=== PATIENT | female | born 1985 | race Caucasian/White ===

== ENCOUNTER 2021-04-17 18:44 | Emergency (ER) | payer OTHER ==
[~2021-04-17] VITALS: Ht 152.4 cm; Wt 78.9 kg
[2021-04-18] MEDS ORDERED: TRANEXAMIC ACI650 MG PO (00:41)
== END 2021-04-18 00:58 | disposition home or self-care (01) ==
LOC: ED 18:44
DX: N92.0 Excessive and frequent menstruation with regular cycle (principal)
CPT/HCPCS: 36430; 80053; 84702; 85007; 85025; 86850; 86900; 86901; 86922; 96374; 96375; 99284-25; J2405; J7030; P9016

== ENCOUNTER 2021-04-18 19:14 | Emergency (ER) | payer OTHER ==
[~2021-04-18] VITALS: Ht 152.4 cm; Wt 79.4 kg
[~2021-04-18 19:14] MED LIST: TRANEXAMIC ACI650 MG PO
--- OUTSIDE RECORDS SUMMARY | 2021-04-18 19:26 | XMS ---
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 Gretel has no Care Guidelines for this patient. Gerry VISIT COUNT (12 MO.) 2 [facility] TOTAL 2 NOTE: Visits indicate total known visits. ED/[facility] (12 MO.) [facility] COMPLAINT: - BACK PAIN, BLOOD CLOTS 04/17/2021 18:44 [facility] [place] TYPE: Emergency COMPLAINT: - [facility] INPATIENT VISIT TRACKING (12 MO.) No inpatient visits to display in this time frame [email or web address]
== END 2021-04-18 22:47 | disposition home or self-care (01) ==
LOC: ED 19:14
DX: N92.0 Excessive and frequent menstruation with regular cycle (principal); M54.5 Low back pain; R11.0 Nausea; Z79.899 Other long term (current) drug therapy
CPT/HCPCS: 85025; 96374; 96375; 99284-25; J1885; J2405; J7030

== ENCOUNTER 2021-06-03 05:44 | Day surgery (SDC) | payer OTHER ==
[~2021-06-03] VITALS: Ht 152.4 cm; Wt 76.3 kg
[~2021-06-03 05:44] MED LIST changes: +FERROUS SULFAT325 M1 PO
--- NOTE | 2021-06-03 11:25 | NUR ---
06/03/21 1125 Sheets,Julita 1107 PT ARRIVED TO PACU WITH ORAL AIRWAY IN PLACE AND VSS. PT NONAROUSABLE TO STIMULI AND ON 6L VIA MASK. 1112 PT WAKES AND FOLLOW COMMANDS TO OPEN MOUTH AND ORAL AIRWAY REMOVED. RN REORIENTING PT TO PACU AND PT FALLS BACK TO SLEEP. SMALL AMOUNT OF SNORING NOTED. 1123 PT WAKES TO TACTILE STIMULI AND O2 REMOVED. PT REORIENTED TO PACU AND EASILY FALLS BACK TO SLEEP, SNORING NOTED. VSS. PT DENIES PAIN.
--- NOTE | 2021-06-03 11:50 | NUR ---
1150 PT ARRIVAL TO ROOM. 103 IN BED CARE ASSUMED FROM PINO GOMEZ RN. PATIENT IS RESTING WITH EYES CLOSED, EASILY ARROUSED, DENIES PAIN OR NEEDS, STATES FEELING SLEEPY. ABDOMINAL DRESSING DRY AND INTACT. 1152 VITAL SIGNS TAKEN. VITAL SIGNS WNL. PT IS ON ROOM AIR WITH SATS 98-100.
--- NOTE | 2021-06-03 12:50 | NUR ---
1250: PT DENIES NAUSEA AFTER RECIEVING NAUSEA MEDICATION. PT IS TOLERATING JELLO AND SMALL SIPS OF WATER.
--- NOTE | 2021-06-03 12:59 | NUR ---
DR HAYES AT THE BEDSIDE TALKING WITH THE PATIENT ABOUT THE PROCEDURE. NO FURTHER NEEDS OR REQUESTS AT THIS TIME.
--- NOTE | 2021-06-03 13:25 | NUR ---
PT RESTING IN BED WITH EYES CLOSED, RESPIRATIONS EVEN AND UNLABORED. OXYGEN SATURATIONS BETWEEN 98%-100%, REMAINS CONTINUOUS OXYGEN SATURATION MONITORING.
--- NOTE | 2021-06-03 14:02 | NUR ---
VITAL SIGNS COMPLETED. PT RESTING EASILY ARROUSED. DENIES NAUSEA OR NEED FOR PAIN MEDS. IS AT BEDSIDE, PT ABLE TO REACH 1000 AND ENCOURAGED TO REACH GOAL OF 2500.
--- NOTE | 2021-06-03 16:00 | NUR ---
PT LAYING IN BED. PT STATED GETTING WARM SO THIS RN TOOK TWO OF THE EXTRA BLANKETS OFF HER BED. VITAL SIGNS WNL. LR RUNNING AT 125 ML/HR. PT EDUCATED ON USE OF IS AND WHEN THE NEXT PAIN MEDICATON WILL BE AVAILABLE. NO FURTHER NEEDS AT THIS TIME.
--- NOTE | 2021-06-03 17:08 | NUR ---
PT RESTING IN BED. PAIN MEDICATION GIVEN. SEE EMAR. PT VITAL SIGNS WNL. DISCUSSED WITH PT ABOUT GETTING UP IN ABOUT AN HOUR TO THE CHAIR PT STATED OKAY WITH THIS. TEMP IN ROOM TURNED DOWN PER PATIENT REQUEST. NO FURTHER NEEDS AT THIS TIME.
--- NOTE | 2021-06-03 18:07 | NUR ---
PT STATES INCREASED PAIN AT REASSESSMENT. GIVEN THE PT TEN MORE MINUTES FOR THE FULL EFFECT OF THE MEDICATION TO KICK IN. IF PAIN DOES NOT IMPROVE IV MORPHINE WILL BE GIVEN. PT IS OK WITH THIS PLAN. NO FUTHER NEEDS AT THIS TIME.
--- NOTE | 2021-06-03 18:16 | NUR ---
181: ABDOMINAL DRESSING ASSESSED. DRAINAGE NOTED AND MARKED AT THIS TIME WILL CONTINUE TO MONITOR, PT SITTING UP IN BED TALKING WITH SIGNIFICANT OTHER, REQUESTING MORPHINE DUE TO PAIN 05/04. 1820: PT REPORTS FEELING A LITTLE BETTER WITH THE MORPHINE GIVEN, UP TO BEDSIDE CHAIR, HAS STEADY GAIT, DENIES DIZZINESS. PT SITTING UP IN BEDISDE CHAIR EATING A SNACK. REPORTS BACK PAIN IS MUCH BETTER IN CHAIR.183: PT SITTING UP IN CHAIR SMILING AND VISITING WITH SIGNIFICANT OTHER EATING DINNER, PT REPORTS 8/10 PAIN AND DECREASING. ICE PACKS TO ABD, PT DENIES FURTHER NEEDS. ABD DRESSING ASSESSED, NO FURTHER DRAINAGE NOTED.
--- NOTE | 2021-06-03 19:00 | NUR ---
PT SITTING UP IN THE CHAIR EATING DINNER. PT PAIN LEVEL HAS DECREASED FROM 8 TO A 6 WITH IT STILL GOING DOWN. PT HAS NO FURTHER NEEDS AT THIS TIME.
--- NOTE | 2021-06-03 20:06 | NUR ---
PT SITTING UP IN CHAIR EATING DINNER AND TOLERATING IT WELL. AT BEDSIDE. RATES PAIN 6 OUT OF 10 AND STATES THAT PAIN MEDS ARE WORKING.
--- NOTE | 2021-06-03 21:15 | NUR ---
PT CONTINUES TO BE UP IN CHAIR, TOLERATES WELL. NEW LR IV HUNG AND CONTINUES TO INFUSE AT 125ML/HR IN LEFT HAND IV SITE. IV SITE INTACT.
--- NOTE | 2021-06-03 22:13 | NUR ---
PT C/O NAUSEA AND WOULD LIKE TO GET BACK TO BED. PT BACK TO BED AND ZOFRAN 4MG IVP GIVEN. SCD'S APPLIED AND PT USED INSENTIVE SPIROMETER.
--- NOTE | 2021-06-03 22:30 | NUR ---
PT NAUSEA BETTER AND REQUESTING PAIN MEDS. MEDICATED WITH 2 PERCOCET PO. PT WILL TRY TO GET SOME REST.
--- NOTE | 2021-06-03 22:58 | NUR ---
PT IN BED AND WILL TRY TO GET SOME SLEEP. PTS DAUGHTER HERE TO STAY WITH HER TONIGHT. NO COMPLAINTS. STATES THAT NAUSEA IS GONE AND THAT ZOFRAN WAS HELPFUL.
--- NOTE | 2021-06-04 01:01 | NUR ---
PT SLEEPING RESTFULLY. NO NEEDS VOICED. RESP EVEN AND UNLABORED.
--- NOTE | 2021-06-04 03:09 | NUR ---
PT SLEEPING WELL. NO NEEDS VOICED. RESP EVEN AND UNLABORED.
--- NOTE | 2021-06-04 05:13 | NUR ---
PT AWAKENED FOR VS AND MEDICATED WITH 2 PERCOCET PO. PT TOOK SIPS OF APPLE JUICE. NEW IV LR HUNG AND INFUSING AT 125/HR. FRESH ICE PACK PLACED ON TOP OF INCISION FOR COMFORT. SCD'S ON.
--- NOTE | 2021-06-04 06:00 | NUR ---
LAB HERE TO DRAW AM LABS. PT MEDICATED WITH 800MG MOTRIN AND MEDICATED WITH SCHEDULED HEPARIN 5000UNITS GIVEN IN LEFT LOWER ABD. PT STATES THAT PERCOCET IS STARTING TO WORK.
--- NOTE | 2021-06-04 10:06 | NUR ---
PT WAS RESTING IN BED. MORNING ASSESSMENT COMPLETED. DC'D PT ABDI, INTACT, WNL. PT WAS ABLE TO VOID A SCANT AMOUNT AFTER THE ABDI WAS REMOVED. IV IN THE RIGHT HAND WAS DC'D. INTACT, OOSING BLOOD, DRESSING CHANGED AND PRESSURE APPLIED. IV IN THE LEFT HAND WAS SALINE LOCKED AND LR WAS STOPPED. PT ENCOURAGED TO DRINK PO FLUIDS. PT WAS ABLE TO GET UP AND WALK TO THE BATHROOM WELL WALK AROUND THE ROOM BEFORE SITTING IN THE CHAIR. PT HAS HER DAUGHTER IN THE ROOM WITH HER. THE INCISION SITE HAD OLD DRAINAGE NOTED. ICE PACK TO THE INCISION SITE. PT WAS EDUCATED AGAIN ON THE USE OF THE IS AND THE IMPORTANCE OF WALKING AROUND MUCH POSSIBLE. PT AND DAUGHTER ORDERED BREAKFAST. NO FURTHER NEEDS AT THIS TIME.
--- NOTE | 2021-06-04 11:09 | NUR ---
PT SITTING UP IN CHAIR TALKING ON THE PHONE. PT STATES 5/10 PAIN AFTER A REASSESSMENT FROM PAIN MEDICATION. DISCUSSED WITH THE PT ABOUT WHEN SHE CAN HAVE THE NEXT DOSE AND SHE IS OK WITH THIS PLAN. SHE IS STILL EATING BREAKFAST AND DOING THE IS DURING COMMERCIALS. SHE DOES HAVE PLANS FOR LATER TODAY TO TAKE A SHOWER AND WALK AROUND. NO FURTHER NEEDS AT THIS TIME.
--- NOTE | 2021-06-04 14:07 | NUR ---
PT FINISHED EATING BREAKFAST IN CHAIR AND GOT UP TO TAKE A SHOWER. PT DID HAVE OOZING BLOOD OUT OF THE LAPROSCOPING INCISION WHICH WAS REINFORCED. PT WAS ABLE TO SHOWER AND BRUSH HER OWN TEETH AND HAIR. PT WALKED TWO LAPS AROUND THE UNIT SLOWLY BUT WITH A STEADY GAIT. BED SHEETS WERE CHANGED. PT BACK IN BED RESTING. IV SITE WAS FLUSHED WITH 10 ML NS. PT AFTERNOON MEDS WERE GIVEN. SEE EMAR. PT WATER FILLED AND COMFORTABLE IN BED. NO FURTHER NEEDS AT THIS TIME.
--- NOTE | 2021-06-04 15:06 | NUR ---
1445: PT NAPPING IN BED. CALL LIGHT WITHIN REACH. NO FURTHER NEEDS AT THIS TIME.
--- NOTE | 2021-06-04 15:15 | NUR ---
PT AWAKE AND TALKING ON THE PHONE IN BED. ASSESSED PT NEED FOR THE PRN PAIN MEDICATION. PT PAIN WAS AT A 5/10 AND WANTED TO WAIT UNTIL 1400 TO RECEIVE PAIN MEDICATION. CALL LIGHT WITHIN REACH. NO FURTHER NEEDS AT THIS TIME.
--- NOTE | 2021-06-04 15:45 | NUR ---
PT RESTING IN BED WATCHING TV. PT GIVEN PAIN MEDICATIOIN GIVEN SEE EMAR. VITAL SIGNS TAKEN, WNL. PT UP TO THE BATHROOM. I&O'S TAKEN. PT EDUCATED ON DRINKING MORE WATER AND USING THE IS. PT ABDOMEN ASSESSED, SCANT AMOUNT OF BLOOD DRAINAGE ON THE NEW BANDAGE, OVERALL LOOKED GOOD. SCD'S BACK ON PT LEGS. PT PLANS ON GETTING UP TO THE CHAIR TO EAT DINNER WHEN THE TIME COMES. CALL LIGHT IN REACH NO FURTHER NEEDS AT THIS TIME.
--- NOTE | 2021-06-04 17:00 | NUR ---
PT RESTING IN BED. DINNER ARRIVED AND ASSISTED PT UP TO THE CHAIR. PAIN LEVEL IS CONSISTANT AT A 5/10. PT HAS PLANS TO WALK AROUND THE UNIT AFTER DINNER AND BEFORE GETTING BACK IN BED. CALL LIGHT IN REACH AND NO FURTHER NEEDS AT THIS TIME.
--- NOTE | 2021-06-04 18:00 | NUR ---
PT BACK TO THE CHAIR AFTER DOING 5 LAPS AROUND THE UNIT. PT IN THE ROOM WITH HER. PT WAS EDUCATED FURTHER ABOUT THE IMPORTANCE OF DRINKING WATER, SHE STATED SHE DOESN'T ALWAYS LIKE THE TASTE OF WATER SO SHE WAS GIVEN WATER WITH SOME JUICE ADDED TO IT FOR FLAVOR. CALL LIGHT IS IN REACH AND NO FURTHER NEEDS AT THIS TIME.
--- NOTE | 2021-06-04 18:00 | NUR ---
PT WAS FINISHING DINNER IN THE CHAIR. PT WAS ABLE TO GET UP AND GO TO THE BATHROOM. PT IS NOW UP WALKING AROUND THE UNIT WITH HER WHO JUST ARRIVED. PT GAIT IS STEADY.
--- NOTE | 2021-06-05 07:20 | NUR ---
PT SLEEPING. DAUGHTER IN ROOM WITH PT. NO FALL HAZARDS ON THE FLOOR. PT CALL LIGHT IN REACH.
--- NOTE | 2021-06-05 08:00 | NUR ---
PT AWAKE RESTING IN BED. MORNING ASSESSMENT COMPLETED. BREATH SOUNDS CLEAR. HEART TONES WNL. NO NUMBNESS OR TINGLING IN EXTREMITIES. NO DIZZINESS OR NAUSEA NOTED. VITAL SIGNS WNL. ABDOMINAL INCISION WNL. OLD DRAINAGE NOTED ON THE ABD. PT UP TO THE BATHROOM TO VOID AND MORNING ORAL CARE. PT STEADY WHEN AMBULATING. PT STATES 7/10 PAIN IN THE INCISION AREA STATES TOLERABLE. IV SITE WNL NO DRAINAGE OR PAIN, SALINE LOCKED. PT EDUCATED ON ORAL FLUIDS. PLAN FOR THE DAY DISCUSSED WITH PT, PT WILL BE UP TO THE CHAIR FOR BREAKFAST THEN UP FOR A WALK. PT OK WITH THIS PLAN. PT IN BED RESTING UNTIL BREAKDFAST ARRIVES. DAUGHTER IN ROOM. CALL LIGHT IN REACH, NO FURTHER NEEDS AT THIS TIME.
--- NOTE | 2021-06-05 08:50 | NUR ---
BREAKFAST ARRIVED. PT UP TO THE CHAIR TO EAT. PT STATES 7/10 PAIN. PT HAS PAIN MEDICATION DUE BUT STATES THIS IS A TOLERABLE LEVEL AND WANTS TO HOLD OFF UNTIL AFTER BREAKFAST. DISCUSSED WITH THE PT THAT SHE SHOULDN'T WAIT TOO LONG BECAUSE IT COULD MAKE THE PAIN WORSE AND SHE SAID AFTER BREAKFAST SHE WILL TAKE PAIN MEDS. AFTER BREAKFAST SHE WOULD ALSO LIKE TO WALK THE UNIT. PT DAUGHTER IN THE ROOM WITH HER. CALL LIGHT IN REACH, NO FURTHER NEEDS AT THIS TIME.
--- NOTE | 2021-06-05 09:30 | NUR ---
CHECKED IN WITH PT. STILL EATING BREAKFAST SLOWLY. DISCUSSED IF SHE WOULD LIKE PAIN MEDICATION YET AND PT WOULD LIKE TO WAIT A LITTLE LONGER. PT DAUGHTER STILL IN ROOM WITH HER. CALL LIGHT IN REACH NO FURTHER NEEDS AT THIS TIME.
--- NOTE | 2021-06-05 10:06 | NUR ---
PT SITTING IN CHAIR FINISHING BREAKFAST. PT STATED PAIN 7/10 IN THE ABD AREA. PAIN MEDICATION GIVEN. PT EDUCATED ON CONTINUING PO FLUIDS MUCH POSSIBLE. CALL LIGHT IN REACH NO FUTHER NEEDS AT THIS TIME.
--- NOTE | 2021-06-05 11:39 | NUR ---
PT FINISHED BREAKFAST AND GOT UP TO USE THE RESTROOM. PT IS NOW UP WALKING AROUND THE UNIT WITH HER DAUGHTER. PT HAS NON SLIP SOCKS ON WITH A STEADY GAIT WHILE AMBULATING. PT STATES PAIN IS 7/10 IN THE ABD AREA BUT STILL TOLERABLE.
[2021-06-05] MEDS ORDERED: FEROSUL325 MG PO (13:47)
--- NOTE | 2021-06-05 13:56 | NUR ---
MED REC COMPLETE
[2021-06-05] MEDS ORDERED: PERCOCET 5-3251 EACH PO (13:57)
[2021-06-05] MEDS ORDERED: IBUPROFEN800 MG PO (13:58)
--- NOTE | 2021-06-05 14:30 | NUR ---
DISCHARGE ORDERS IN PLACE FOR PT. EDUCATION ON MEDICATIONS PROVIDED BY CANDICE FROM PHARMACY. PT EDUCATION ABOUT MEDICATIONS, ABDOMINAL HYSTERECTOMY CARE SUCH WHEN TO CALL THE DOCTOR, SIGNS OF INFECTION, AND CARE OF THE INCISION. PT HAS A FOLLOW UP APPOINTMENT WITH DR JOHNSON May AT 1330. ALL QUESTIONS PT HAD WERE ANSWERED, PT AND DAUGHTER DENIES FURTHER QUESTIONS. IV ON THE LEFT HAND WAS REMOVED, TIP INTACT. REMOVAL WNL, TOLERATED WELL. PT UP IN ROOM GETTING DRESSED, DENIES DIZZINESS OR NEEDS
--- NOTE | 2021-06-05 14:42 | NUR ---
PT DISCHARGED VIA WHEELCHAIR. PT DENIES QUESTIONS OR CONCERNS BEFORE LEAVING. PT WHEELED TO THE FRONT OF THE HOSPITAL. PT PICKED HER UP TO DRIVE HER HOME. PT DAUGHTER WAS ALSO HERE TO HELP. PT WAS ASSISTED INTO THE CAR. PT HAD A STEADY GAIT WITH NO DIZZINESS REPORTED. ALL BELONGINGS WENT WITH THE PT. NO FURTHER QUESTIONS OR CONCERNS FROM THE PT AND FAMILY. PT HAS LOTS OF SUPPORT AT HOME FROM HER AND CHILDREN.
--- NOTE | 2021-06-10 11:43 | OR ---
[facility] [address] [place], [place] [address] Signed DATE OF OPERATION: 06/03/2021 SURGEON: Feliz Sauceda MD The patient of Dr. Sauceda. PREOPERATIVE DIAGNOSIS: Abnormal uterine bleeding, uterine fibroids. POSTOPERATIVE DIAGNOSES: Abnormal uterine bleeding, uterine fibroids plus anterior cul-de-sac adhesions. PROCEDURES: Diagnostic laparoscopy, total abdominal hysterectomy with bilateral salpingectomy and lysis of adhesions and cystoscopy. ED TECH: Dr. Courtney ANESTHESIA: General. ESTIMATED BLOOD LOSS: 400 mL. COMPLICATIONS: None. DRAINS: Adames to bladder. FINDINGS: Small irregular lobed cervix with small introitus. Uterus was enlarged approximately 16 week size, symmetrically round and soft. The anterior cul-de-sac was elevated. The anterior cul-de-sac bladder flap was elevated up the anterior uterus approximately half way to the round ligaments with adhesions extending laterally up to the round ligaments on both sides. The posterior cul-de-sac was free of any adhesions. Both tubes were slightly edematous and shortened, but no other abnormalities or adhesions seen. Both ovaries were normal in size, but closely adherent to the uterus. No other adhesions of the ovaries seen. There were some right upper quadrant adhesions from the anterior Electronically Signed By: FELIZ SAUCEDA MD 06/10/21 1143 PATIENT NAME: LINN SALAZAR OPERATIVE REPORT DATE OF : 81 REPORT #: [id number] PHYSICIAN: FELIZ SAUCEDA MD PCP: NO PRIMARY CARE PHYSICIAN REPORT IS CONFIDENTIAL AND NOT TO BE RELEASED WITHOUT AUTHORIZATION [facility] [address] [place], [place] [address] Signed abdominal wall to the bowel and was filmy adhesions around the liver. DESCRIPTION OF PROCEDURE: The patient was brought to the operating room, placed in supine position. After adequate general anesthesia was obtained, was placed in a dorsal lithotomy position, and prepped and draped in usual sterile fashion. A Adames catheter was placed in the bladder and a weighted speculum placed in the vagina. The cervix was identified, grasped with the Allis clamp. The VCare uterine manipulator was carefully inserted through the endocervical canal into the fundus of the uterus and the balloon filled with water. The rest of the instruments were removed and the cervical cap slid up. The uterine manipulator placed over around the cervix and then the vaginal cup slid up against the cervical cap and tightened in place. Attention was then drawn to the abdomen. A small infraumbilical skin incision was made with a scalpel after injecting the area with 0.25% Marcaine with epinephrine. Subcutaneous tissue was dissected with Metzenbaum scissors. The fascia identified, grasped with hemostats elevated nicked with Metzenbaum scissors and extended in transverse fashion using Metzenbaum scissors. Retention stitches of 0 Vicryl suture placed above and below the incision. Finger dissection was used to bluntly separate the muscle and opened the peritoneum. An S retractor was inserted into the incision and the Andressa cannula and sleeve entered the abdomen under direct visualization. The sleeve balloon was filled with air. The outer sleeve slid down and tightened in place and the two retention stitches attached to the outer sleeve. The trocar was removed. The laparoscope with video attachment entered the abdomen under direct visualization. Carbon dioxide was used as distending medium. With the laparoscope in place, the uterus noted to be quite round smooth, very difficult to see around the uterus. Attempt was made to elevate and lower the bladder. The uterus could not be elevated because the anterior abdominal wall and could not be lowered because of the adhesions holding the uterus to the anterior abdominal wall. It was difficult to see either upper pedicle and so it was decided at this point not to attempt a laparoscopic procedure and proceed with abdominal approach, so all instruments were removed. A midline vertical skin incision was made between the previous skin incision down to suprapubic area using a scalpel. Subcutaneous tissue was dissected with the scalpel and Bovie. The fascia was nicked with scalpel and a Aviva clamp placed under the fascia to raise the fascia and open the fascia with the scalpel along the midline. The previous opening in the infraumbilical area was used, placed a finger through and Flores scissors used to cut the midline scarred tissue combining the peritoneum abdominal musculature. This was a fairly thick and scarred in the midline and this was taken down until palpating the elevated bladder flap. At this point care was taken to carefully separate just muscle, the abdominal musculature and attempt was made to identify the bladder flap adhesions separate from the bladder. This was rather difficult and Metzenbaum scissors Electronically Signed By: FELIZ SAUCEDA MD 06/10/21 1143 PATIENT NAME: LINN SALAZAR OPERATIVE REPORT DATE OF : 81 REPORT #: [id number] PHYSICIAN: FELIZ SAUCEDA MD PCP: NO PRIMARY CARE PHYSICIAN REPORT IS CONFIDENTIAL AND NOT TO BE RELEASED WITHOUT AUTHORIZATION [address] [address] Signed were used to undermine the peritoneum that was elevated along in the midline and this was cut transversely. The tissue gently pushed down taking care to stay against the uterus and cervix to avoid entering the bladder, with this partially taken down there was still not enough room to elevate the uterus, so the abdominal wall incision was extended around the umbilicus and using a scalpel to gain extra length. At this point, the uterus could be partially brought out of the opening and palpated behind and around the uterus and the anterior cul-de-sac adhesions were again carefully bluntly taken down, staying against the cervix and uterus. At this point, finally plane was found against the lower segment of the uterus and cervix and so the tissue could be taken down so that the Conner self-retaining retractor could be inserted, with this in place and tightened the upper pedicles could then be taken down. Again, the ovaries were again noted to be very close and adherent to the uterus. Two curved Celeste clamps were placed against the uterus between the uterus and the left ovary and this pedicle was cut with scissors and was stick-tied with 0-Vicryl suture. The second pedicle was taken to free up against the uterus. Again, two curved Celeste clamps were used to clamp the pedicle, cut and then the pedicle stick-tied. This did seem to incorporate the uteroovarian ligament and fallopian tube. The round ligament was still below this and pulled into the adhesion, but the round ligament could be from the bladder, so two curved Celeste clamps were used to clamp the round ligament, which was then cut and the pedicle stick-tied with 0-Vicryl suture. Same procedure was carried out on the right side again. The ovary was very close to the uterus. The two curved Celeste clamps were clamped against the uterus and the pedicle cut between in the pedicles, stick-tied with 0-Vicryl suture and two additional curved Celeste pedicles were doubly clamped, cut, and tied to reach the round ligament on the right side. At this time the uterus could be elevated. Once the uterus was free of the upper pedicles. The uterus could be elevated further and palpated underneath and so the broad ligament pedicles could be taken down again clamping with a straight Celeste clamp against the uterus and then second clamped just lateral to this cutting between the two clamps and stick tying with 0-Vicryl suture. Upon reaching the level of the uterine, the uterine arteries straight Celeste clamps were clamped against the uterus. The pedicles cut and each side stick-tied with 0-Vicryl suture. Blunt dissection was used to help push the paracervical tissue down the bladder did seem to be above this area at this point, and so the dissection could continue with straight Celeste clamps, clamped on either side against the side of the cervix, cutting the pedicles with curved scissors and stick tying with 0-Vicryl suture. This was taken down till reaching the level of the external os. At this point, two curved Celeste clamps were placed against the cervix just lateral and clamping just below the cervix. Justin scissors were then used to cut the cervix free from the vagina and the uterus and attached cervix was removed from the operating field. The two angle stitches were Tanya stick-tied to incorporate the corners and the remaining opening in the vaginal with 0-Vicryl suture and the remaining opening in the vaginal cuff closed with two [id number] stitches of 0 Vicryl suture. At this point, the fallopian tubes were clamped with Aviva clamps and cut free of the Electronically Signed By: FELIZ SAUCEDA MD 06/10/21 1143 PATIENT NAME: LINN SALAZAR OPERATIVE REPORT DATE OF : 81 REPORT #: [id number] PHYSICIAN: FELIZ SAUCEDA MD PCP: NO PRIMARY CARE PHYSICIAN REPORT IS CONFIDENTIAL AND NOT TO BE RELEASED WITHOUT AUTHORIZATION [facility] [address] [place], [place] [address] Signed ovary and the pedicle stick-tied with 0-Vicryl suture. The entire pelvis was then irrigated, suctioned and examined. There were several oozing spots. These were carefully identified as superficial wound were cauterized with the Bovie. Deeper one on the left side was grasped with hemostats and then cross clamped just below this with a right angle clamp and a free tie of 3-0 Vicryl suture used to control the small bleeder. The peritoneal edge on the left pelvic sidewall was noted to be well above the ureter and so a running stitch of 3-0 Vicryl suture was used to control this bleeding. The pressure was then held and then again the entire pelvis irrigated, suctioned, examined and noted to have good hemostasis except for slight raw areas with the minimal bleeding. The raw areas were then sprayed with Tisseel to help with hemostasis. The Conner retractor was removed. The lap pads were removed and the upper portion of the adhesions and abdominal musculature were carefully examined any bleeding spots cauterized with the Bovie staying on any abdominal musculature and staying away from the bladder with the Bovie. Additional Tisseel was sprayed over this raw area from all the adhesions to the peritoneum. Good hemostasis was obtained. The peritoneum was then closed using running stitch of 2-0 Vicryl suture. The fascia closed using two running stitches of 0-PDS, one starting from the bottom corner, one starting from the top corner and meeting in the corner and meeting in the middle. The subcutaneous tissue was irrigated, suctioned, and examined, and any bleeding spots cauterized with the Bovie. Subcutaneous tissue was closed using interrupted stitches of 3-0 Vicryl suture and the skin reapproximated using 4-0 repeated in the subcuticular stitch. Cystoscopy was then done so a Adames catheter was removed. The cystoscope with 70 degree lens was carefully placed in the urethral opening and entered the bladder under direct visualization. Sterile water was used as distending medium. The entire bladder was examined. The dome posterior and both sides carefully examined, noted to have no defects puckering sutures or any holes. Both ureteral orifices were identified and showed correct position and showed good jets of urine coming from each. At this point, the bladder was drained. The cystoscope removed and the Adames catheter placed back in the bladder. The patient tolerated the procedure well, went to recovery room in good condition. The sponge, needle, and instrument count were correct at the end of the procedure. Feliz Sauceda MD MJB/MODL /[id number] Electronically Signed By: FELIZ SAUCEDA MD 06/10/21 1143 PATIENT NAME: LINN SALAZAR OPERATIVE REPORT DATE OF : 81 REPORT #: [id number] PHYSICIAN: FELIZ SAUCEDA MD PCP: NO PRIMARY CARE PHYSICIAN REPORT IS CONFIDENTIAL AND NOT TO BE RELEASED WITHOUT AUTHORIZATION [facility] [address] [place] [id number] Signed Copies: ~ Electronically Signed By: FELIZ SAUCEDA MD 06/10/21 1143 PATIENT NAME: LINN SALAZAR OPERATIVE REPORT DATE OF : 81 REPORT #: [id number] PHYSICIAN: FELIZ SAUCEDA MD PCP: NO PRIMARY CARE PHYSICIAN REPORT IS CONFIDENTIAL AND NOT TO BE RELEASED WITHOUT AUTHORIZATION
== END 2021-06-05 14:42 | disposition home or self-care (01) ==
LOC: OPS 05:44 → DS 05:44 → FBC 05:44 → OPS 06:45 → FBC 11:45 → OPS 06-05 14:42
PROVIDERS: ATTEND General Practice
PROC: 0UT90ZZ Resection of Uterus, Open Approach (ICD-10-PCS; principal; 2021-06-03 06:45)
PROC: 0UT70ZZ Resection of Bilateral Fallopian Tubes, Open Approach (ICD-10-PCS; 2021-06-03 06:45)
DX: D25.9 Leiomyoma of uterus, unspecified (principal); N83.8 Other noninflammatory disorders of ovary, fallopian tube and broad ligament; K66.0 Peritoneal adhesions (postprocedural) (postinfection); G89.18 Other acute postprocedural pain; Z53.31 Laparoscopic surgical procedure converted to open procedure
CPT/HCPCS: 00840; 64448; 76942; 80500; 85025; 86850; 86900; 86901; 86922; A9270; J0690; J1100; J1170; J1644; J1885; J2001; J2250; J2270; J2405; J2704; J2765; J2795; J3010; J7121